=== PATIENT | female | born 1960 | race Caucasian/White ===

== ENCOUNTER → 2019-01-15 | Outpatient (CLI) | payer BC | END | disposition home or self-care (01) | LOC: HKI 13:38 | DX: M21.70 Unequal limb length (acquired), unspecified site (principal); R10.30 Lower abdominal pain, unspecified; S52.371A Galeazzi's fracture of right radius, initial encounter for closed fracture; X58.XXXA Exposure to other specified factors, initial encounter; Y92.89 Other specified places as the place of occurrence of the external cause | CPT/HCPCS: 73523 ==